=== PATIENT | male | born 1955 | race Caucasian/White ===

== ENCOUNTER → 2019-01-09 | Outpatient (CLI) | payer MEDICARE | END | disposition home or self-care (01) | LOC: CFH 10:27 | PROVIDERS: ATTEND Internal Medicine Cardiovascular Disease | DX: I07.1 Rheumatic tricuspid insufficiency (principal); I10 Essential (primary) hypertension | CPT/HCPCS: 93306 ==

== ENCOUNTER 2020-01-10 10:53 | Day surgery (SDC) | payer MEDICARE ==
[~2020-01-10] VITALS: Ht 182.9 cm; Wt 66.8 kg
[~2020-01-10 10:53] MED LIST: BUPIVACAINE/PF 0.5% ONE; EPINEPHRINE 1 MG/ML, 1ML ONE; NONE PER PT
[2020-01-10 12:11] VITALS: BP 129/75
[2020-01-10] MEDS ORDERED: CHLORHEXIDINE 15 ML UDC ONE (12:16)
[2020-01-10] MEDS ORDERED: CHLORHEXIDINE 15 ML UDC MM ONE (12:30)
[2020-01-10] MEDS ORDERED: LACTATED RINGERS 1,000 ML IV SCH (12:30)
[2020-01-10] MEDS ORDERED: MIDAZOLAM 1 MG/ML, 2ML ONE (12:31)
[2020-01-10] MEDS ORDERED: FENTANYL PF 250 MCG/5ML ONE (12:31)
[2020-01-10] MEDS ORDERED: LORazepam 2 MG/ML, 1ML IVPush PRN (13:00)
[2020-01-10] MEDS ORDERED: FENTANYL PF 100 MCG/2ML IV PRN (13:00)
[2020-01-10] MEDS ORDERED: ONDANSETRON 2MG/ML, 2ML IVPush PRN (13:00)
[2020-01-10] MEDS ORDERED: HYDROmorphone 1 MG/ML, 1ML INJ IVPush PRN (13:00)
[2020-01-10] MEDS ORDERED: ACETAMINOPHEN 325 MG TABLET PO PRN (13:00)
[2020-01-10] MEDS ORDERED: OXYcodone 5 MG/5 ML ORAL.SOL UDC PO PRN ×2 (13:00→14:00)
[2020-01-10] MEDS ORDERED: METHOCARBAMOL 1,000 MG in DEXTROSE 5% 100 ML IV PRN (13:00)
[2020-01-10] MEDS ORDERED: PROMETHAZINE 25 MG SUPP PR PRN (13:00)
[2020-01-10] MEDS ORDERED: PROMETHAZINE 25 MG/ML, 1ML IVPush PRN (13:00)
[2020-01-10] MEDS ORDERED: BUPIVACAINE/PF-EPI 0.5% 1:200K INFIL ONE (13:15)
[2020-01-10] MEDS ORDERED: ONDANSETRON 2MG/ML, 2ML ONE (13:40)
[2020-01-10] MEDS ORDERED: NEOSTIGMINE 1 MG/ML, 10ML ONE (13:40)
[2020-01-10] MEDS ORDERED: SUGAMMADEX 200 MG/2 ML IVPush ONE (13:40)
[2020-01-10] MEDS ORDERED: GLYCOPYRROLATE 0.2MG/1ML, 5ML ONE (13:40)
[2020-01-10] MEDS ORDERED: SUCCINYLCHOLINE 20 MG/ML, 10ML ONE (13:40)
[2020-01-10] MEDS ORDERED: DEXAMETHASONE 4 MG/ML, 1ML ONE (13:40)
[2020-01-10] MEDS ORDERED: CEFAZOLIN 1,000 MG ONE (13:40)
[2020-01-10] MEDS ORDERED: PROPOFOL 10 MG/ML, 20ML ONE (13:40)
[2020-01-10] MEDS ORDERED: ROCURONIUM 10MG/ML,5ML ONE (13:40)
[2020-01-10] MEDS ORDERED: OXYcodone 5 MG/5 ML ORAL.SOL UDC ONE (14:01)
== END 2020-01-10 16:15 | disposition home or self-care (01) ==
LOC: OUT 10:53
PROVIDERS: ATTEND Surgery
DX: K40.90 Unilateral inguinal hernia, without obstruction or gangrene, not specified as recurrent (principal); D17.6 Benign lipomatous neoplasm of spermatic cord; I10 Essential (primary) hypertension; Z79.899 Other long term (current) drug therapy; Z80.3 Family history of malignant neoplasm of breast
CPT/HCPCS: 49650; 87635; 93005; C1781; J0171; J0690; J1100; J2250; J2405; J2704; J2710; J3010; J7120; J0330